=== PATIENT | male | born 1995 | race Caucasian/White ===

== ENCOUNTER 2017-10-01 06:36 | Emergency (ER) | payer BC ==
[~2017-10-01] VITALS: Ht 188 cm; Wt 152.7 kg
[~2017-10-01 06:36] MED LIST: NOHOMEMEDS
[2017-10-01] MEDS ORDERED: LORTAB 10-3251 EACH PO (08:59)
[2017-10-01 09:58] VITALS: BP 124/81
== END 2017-10-01 09:58 | disposition home or self-care (01) ==
LOC: EME 06:36
PROC: 2W3LX1Z Immobilization of Right Lower Extremity using Splint (ICD-10-PCS; principal; 2017-10-01)
DX: S82.831A Other fracture of upper and lower end of right fibula, initial encounter for closed fracture (principal); W00.0XXA Fall on same level due to ice and snow, initial encounter; M25.471 Effusion, right ankle; F17.200 Nicotine dependence, unspecified, uncomplicated
CPT/HCPCS: 73610; 99281; 99283